=== PATIENT | male | born 1995 | race Two or more races ===

== ENCOUNTER 2024-05-12 04:21 | Emergency (ER) | payer MEDICAID, OTHER ==
[~2024-05-12] VITALS: Ht 172.7 cm; Wt 102.1 kg
[2024-05-12 06:59] VITALS: BP 135/78; PULSE 66; RESP 18; TEMP 98.2; O2SAT 99
[2024-05-12] MEDS ORDERED: IBUP-1454 PO (07:16)
[2024-05-12] MEDS ORDERED: LIDO5CRE14 EX (07:16)
[2024-05-12] MEDS ORDERED: CYCL-837 PO (07:16)
== END 2024-05-12 07:18 | disposition home or self-care (01) ==
LOC: ER 04:21
DX: S46.911A Strain of unspecified muscle, fascia and tendon at shoulder and upper arm level, right arm, initial encounter (principal); Z79.1 Long term (current) use of non-steroidal anti-inflammatories (NSAID); X50.0XXA Overexertion from strenuous movement or load, initial encounter; Y93.89 Activity, other specified; Y92.89 Other specified places as the place of occurrence of the external cause; Y99.8 Other external cause status
CPT/HCPCS: 73030